=== PATIENT | female | born 2000 | race Caucasian/White ===

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

== ENCOUNTER 2020-04-24 04:54 | Emergency (ER) | payer OTHER, SELFPAY ==
--- NOTE | ~2020-04-24 | XR_ITS ---
EXAMINATION: XR chest 1V portable EXAM DATE: 04/24/2020 06:28 INDICATION: Cough. TECHNIQUE: Frontal and lateral projections of the chest obtained and reviewed. Comparison is made to prior examination from 04/01/2019. FINDINGS: Interval development of patchy bilateral infrahilar ill-defined acute airspace disease and smaller amount of left midlung zone opacity. Recommend considering possibility of COVID pneumonia. No pneumothorax or pleural effusion. Cardiomediastinal silhouette is normal. There are no osseous abnor malities identified. IMPRESSION: Development of bilateral right basilar predominant ill-defined acute airspace disease, po ssible COVID pneumonia. Reviewed, dictated and finalized at location A. DRIVER IMPRESSION: Development of bilateral right basilar predominant ill-defined acut e airspace disease, possible COVID pneumonia.
[2020-04-24 04:57] VITALS: BP 110/57; PULSE 91; RESP 18; TEMP 36.7; O2SAT 98
--- NOTE | 2020-04-24 05:45 | ED.GENADULT ---
HPI - General Adult General Chief complaint: Shortness of Breath/Dyspnea Stated complaint: covid +, breathing problems Time Seen by Provider: 04/24/20 05:44 History of Present Illness HPI narrative: Patient a 20-year-old female who presents the emergency department with chief complaint of shortness of breath. Patient reports he was just diagnosed with COVID-19 and reports that she has been having increased shortness of breath and feels tight in her chest at times. The patient states it worsened when she exerts herself states that she has had to sit down whenever she is active but the patient denies any signs of hypoxia. Related Data Allergies Allergy/AdvReac Type Severity Reaction Status Date / Time diazepam [From Valium] AdvReac Depression Verified 04/24/20 05:02 Review of Systems Review of Systems: Narrative: A 10 system review of systems was completed on the patient and is negative except for what is stated in the HPI. Nursing and ancillary documentation was reviewed. PMFSH Social History Social History Gender identity (if verbalized by the patient): Male Comments Past medical history is significant for recent diagnosis with COVID-19 and psoriasis Social history the patient denies smoking Exam Narrative: Exam Narrative: GENERAL: Well-appearing, well-nourished, and in no acute distress. HEAD: Normocephalic, atraumatic. EYES: PERRLA and EOMI. ENT: Nares clear, no rhinorrhea or epistaxis. Mucous membranes moist. NECK: Supple. CHEST: Clear to auscultation. No respiratory distress. HEART: Regular rate and rhythm. No murmur heard. Normal peripheral pulses. ABDOMEN: Soft, nontender, nondistended, normal active bowel sounds. EXTREMITIES: Normal range of motion. No edema. SKIN: Warm, dry, no rash. NEURO: No focal deficits. Alert and oriented x3. PSYCH: Normal mood and affect. Course Vital Signs Vital signs: Vital Signs Temperature 36.7 C 04/24/20 04:57 Pulse Rate 91 04/24/20 04:57 Respiratory Rate 18 04/24/20 04:57 Blood Pressure 110/57 L 04/24/20 04:57 Pulse Oximetry 98 04/24/20 04:57 Temperature 36.7 C 04/24/20 04:57 Pulse Rate 83 04/24/20 06:13 Respiratory Rate 18 04/24/20 06:13 Blood Pressure 113/74 04/24/20 06:13 Pulse Oximetry 98 04/24/20 06:13 Medical Decision Making Vital Signs Vital Signs: Vital Signs Temperature 36.7 C 04/24/20 04:57 Pulse Rate 91 04/24/20 04:57 Respiratory Rate 18 04/24/20 04:57 Blood Pressure 110/57 L 04/24/20 04:57 Pulse Oximetry 98 04/24/20 04:57 Temperature 36.7 C 04/24/20 04:57 Pulse Rate 83 04/24/20 06:13 Respiratory Rate 18 04/24/20 06:13 Blood Pressure 113/74 04/24/20 06:13 Pulse Oximetry 98 04/24/20 06:13 Discharge Plan Discharge Clinical Impression: COVID-19, Shortness of breath Patient Disposition: Home, Self-Care Condition: Stable Instructions: Antibiotic Form, Dyspnea (ED), COVID-19 (Coronavirus Disease 2019) (ED) Prescriptions: New albuterol sulfate 90 mcg/actuation HFA aerosol inhaler 2 inh inhalation Q4H PRN (Reason: shortness of breath or wheezing) Qty: 8.5 RF: 0 benzonatate 200 mg capsule 200 mg PO TID PRN (Reason: cough) Qty: 21 RF: 0 Follow-up/Referrals: Kannan Arechiga MD [Primary Care Provider] - Time of Disposition: 06:18
[2020-04-24 06:13] VITALS: BP 113/74; PULSE 83; RESP 18; O2SAT 98
== END 2020-04-24 06:34 | disposition home or self-care (01) ==
PROVIDERS: Emergency Provider Emergency Medicine; Family Provider Pediatrics; PCP Emergency Medicine
DX: U07.1 COVID-19 (principal); R06.02 Shortness of breath; R91.8 Other nonspecific abnormal finding of lung field
CPT/HCPCS: 71045; 99283

== ENCOUNTER 2020-06-04 18:18 | Emergency (ER) | payer OTHER, SELFPAY ==
--- NOTE | ~2020-06-04 | XR_ITS ---
XR ankle RT min 3V 06/04/2020 18:49 INDICATION: Right ankle pain PROCEDURE: 5 views right ankle COMPARISON: No prior studies for comparison. FINDINGS: Fracture, dislocation or subluxation is not identified. Ankle mortise intact. Talar dome is normal. The soft tissues appear within normal limits. No foreign bodies are identified. IMPRESSION: 1: NO ACUTE BONE OR JOINT ABNORMALITY IDENTIFIED. Reviewed, dictated and finalized at location A. NICAL BUSINESS ANALYST
[2020-06-04 18:20] VITALS: BP 136/88; PULSE 82; RESP 16; TEMP 36.2; O2SAT 98
--- NOTE | 2020-06-04 19:05 | ED.LOWEXIN ---
HPI - Extremity Injury (Lower) General Chief Complaint: Extremity Injury, Lower Stated Complaint: right ankle injury Time Seen by Provider: 06/04/20 18:32 Source: patient Mode of arrival: ambulatory Limitations: no limitations History of Present Illness HPI Narrative: This is a 20 year old female that presents to the ER for right ankle pain x 3 days. Reports pain is throbbing in nature. Reports no certain injury that she can think of. Also reports swelling to the area. Denies fever, erythema or warmth. Related Data Home Medications Medication Instructions Recorded Confirmed No Home Medications 06/04/20 06/04/20 Allergies Allergy/AdvReac Type Severity Reaction Status Date / Time diazepam [From Valium] AdvReac Depression Verified 06/04/20 18:19 Review of Systems Review of Systems: Narrative: CONSTITUTIONAL: Denies fever SKIN: Denies rash MUSCULOSKELETAL: Reports joint pain, and myalgia. NEUROLOGIC: Denies numbness All systems reviewed & are unremarkable except as noted in HPI and below PMFSH Past Medical History Medical History (Updated 06/04/20 @ 19:10 by Essence Avalos PA-C) Psoriasis Social History Social History (Updated 06/04/20 @ 19:08 by Essence Avalos PA-C) Substance use: never Gender identity (if verbalized by the patient): Female Exam Narrative: Exam Narrative: GENERAL: Well-appearing, well-nourished, and in no acute distress. HEAD: Normocephalic, atraumatic. EYES: EOMI. EXTREMITIES: Normal range of motion. No edema, erythema or warmth. Normal DP pulses. Normal sensation. Achilles tendon is intact SKIN: Warm, dry, no rash. NEURO: No focal deficits. Alert and oriented x3. PSYCH: Normal mood and affect Course Vital Signs Vital signs: Vital Signs Temperature 97.2 F L 06/04/20 18:20 Pulse Rate 82 06/04/20 18:20 Respiratory Rate 16 06/04/20 18:20 Blood Pressure 136/88 06/04/20 18:20 Pulse Oximetry 98 06/04/20 18:20 Temperature 97.2 F L 06/04/20 18:20 Pulse Rate 82 06/04/20 18:20 Respiratory Rate 16 06/04/20 18:20 Blood Pressure 136/88 06/04/20 18:20 Pulse Oximetry 98 06/04/20 18:20 MDM - Extremity Injury (Lower) MDM Narrative Medical decision making narrative: Patient presents the emergency department for right ankle pain x3 days. Is unsure of a certain injury. Right ankle x-rays without acute findings. Patient is neurovascularly intact. Patient given Pranay wrap for comfort. Was instructed to rest, ice and take [id number] pain medication as needed. She is to follow-up with primary care doctor. She was given warnings to return to the ER Imaging Data Radiologist's impression: ITS Impressions Ankle X-Ray 06/04/20 18:52 IMPRESSION: 1: NO ACUTE BONE OR JOINT ABNORMALITY IDENTIFIED. Critical Care Time Critical Care Time Critical Care Time: No Discharge Plan Discharge Clinical Impression: Ankle pain, right Qualifiers: Chronicity: acute Qualified Code(s): M25.571 - Pain in right ankle and joints of right foot Patient Disposition: Home, Self-Care Condition: Stable Instructions: Ankle Sprain (ED) Additional Instructions: Return to the emergency department if you experience fever, redness and swelling of your leg, numbness, or any other symptoms that are concerning to you Wear PRANAY wrap and use crutches. No weight on the affected leg until able to bear weight without pain. Ice and elevate extremity. Pain medication as needed and directed. Follow up with your doctor for further care. Prescriptions: No Action No Home Medications RF: 0 Follow-up/Referrals: Kannan Arechiga MD [Primary Care Provider] - 3 Days
== END 2020-06-04 19:38 | disposition home or self-care (01) ==
PROVIDERS: Emergency Provider Emergency Medicine; PCP Emergency Medicine
DX: M25.571 Pain in right ankle and joints of right foot (principal)
CPT/HCPCS: 73610; 99283

== ENCOUNTER 2023-12-30 13:17 | Emergency (ER) | payer OTHER, SELFPAY ==
--- NOTE | ~2023-12-30 | XR_ITS ---
EXAMINATION: XR chest 2V Exam Date/Time: 12/30/2023 16:14 CDT HISTORY: epigastric pain Comparison: 04/24/2020. RESULT: Lines, tubes, and devices: None. Lungs and pleura: Clear. Cardiomediastinal silhouette: Stable. Other: No acute osseous or upper abdominal finding. IMPRESSION: No acute cardiopulmonary process. Reviewed, dictated and finalized at location K.
[2023-12-30 13:30] VITALS: BP 120/81; PULSE 93; RESP 18; TEMP 36.2; O2SAT 99
[2023-12-30] MEDS: MAG HYDROX/AL HYDROX/SIMETH 30 ML UDC PO (15:41)
[2023-12-30] MEDS: LIDOCAINE HCL 2% VISC SOLN 15 ML UDC PO (15:42)
[2023-12-30] MEDS: PANTOPRAZOLE SOD SESQUIHYDRATE 20 MG TAB PO (15:42)
[2023-12-30] MEDS: FAMOTIDINE 20 MG TABLET PO (15:42)
[2023-12-30] MEDS: SUCRALFATE 1 GM TABLET PO (15:42)
--- NOTE | 2023-12-30 15:42 | ED.NAVMDI ---
HPI - Nausea/Vomiting/Diarrhea General Chief complaint: Skin/Abscess/Foreign Body Stated complaint: FB GI Time Seen by Provider: 12/30/23 15:11 History of Present Illness HPI Narrative: Patient takes doxycycline for acne, and several days ago felt it was stuck in her throat, and since then has been having increasing pain. Is able to eat and drink but it does hurt. Related Data Allergies Allergy/AdvReac Type Severity Reaction Status Date / Time diazepam [From Valium] AdvReac Depression Verified 06/04/20 18:19 Review of Systems Review of Systems: All systems reviewed & are unremarkable except as noted in HPI and below PMFSH Past Medical History Medical History (Updated 12/30/23 @ 15:30 by Margarita Em MD) Psoriasis Social History Social History (Updated 06/04/20 @ 19:08 by Essence Avalos PA-C) Substance use: never Gender identity (if verbalized by the patient): Female Exam Narrative: EXAMINATION OF ORGAN SYSTEMS/BODY AREAS: Constitutional: Vital signs per nursing GENERAL:[No acute distress, non-toxic appearing.] HEAD: Normal with no signs of head trauma. EYES: EOMI, conjunctiva normal ENT: Hearing grossly intact LUNGS: Nonlabored breathing. HEART: [Regular rate and rhythm] ABD: [Soft], [nontender to palpation] EXT: Normal range of motion SKIN: [No rashes or lesions.] NEURO: [Alert and oriented x 3. No gross focal sensory or strength deficits.] PSYCH: Normal affect Course Vital Signs Vital signs: Vital Signs Temperature 97.2 F L 12/30/23 13:30 Pulse Rate 93 12/30/23 13:30 Respiratory Rate 18 12/30/23 13:30 Blood Pressure 120/81 12/30/23 13:30 Pulse Oximetry 99 12/30/23 13:30 Temperature 98.1 F 12/30/23 17:53 Pulse Rate 86 12/30/23 17:53 Respiratory Rate 18 12/30/23 17:53 Blood Pressure 112/85 12/30/23 17:53 Pulse Oximetry 100 12/30/23 17:53 MDM - Nausea/Vomiting/Diarrhea MDM Narrative Medical decision making narrative: Patient takes doxycycline for acne, and several days ago felt it was stuck in her throat, and since then has been having increasing pain. Is able to eat and drink but it does hurt when she swallows. Well-appearing here, denies any pain or distress when she is not eating or swallowing anything, no chest wall tenderness or crepitus, I did discuss the case with wind turbine mechanical engineer on-call Dr. Moreno, he recommends GI cocktail, sucralfate, Protonix, for likely pill esophagitis, with follow-up in clinic. Medications are ordered but on re-evaluation patient still is driving home she pain, I did give her a obtained labs and imaging which are unremarkable other than slightly elevated white blood cell count, she is given additional pain medication on re-evaluation does feel slightly better, long discussion with patient and family at bedside regarding care for full soft diet is, diet instructions, follow-up instructions to Gastroenterology, and strict return precautions. Patient agreeable to plan. Prescriptions sent to pharmacy Lab Data 12/30/23 16:48 12/30/23 16:48 Labs: Lab Results 12/30/23 Range/Units 16:48 WBC 14.2 H (4.5-10.0) K/mm3 RBC 4.76 (4.2-5.4) M/mm3 Hgb 14.3 (12.0-15.0) g/dL Hct 42.2 (37.0-47.0) % MCV 88.7 (80-100) fl MCH 30.0 (26-34) pg MCHC 33.9 (32-36) g/dl RDW 12.8 (11.5-14.5) % Plt Count 278 (150-375) k/mm3 MPV 9.0 (7.4-10.4) fl Immature Gran % (Auto) 0.4 (0-0.5) % Neut % (Auto) 78.3 H (45.5-73.1) % Lymph % (Auto) 14.0 L (18.3-44.2) % [place] % (Auto) 6.1 (2.6-8.5) % Eos % (Auto) 0.8 (0-4.4) % Baso % (Auto) 0.4 (0.2-1.2) % Lymph # (Auto) 1.99 (0.9-3.2) K/mm3 [place] # (Auto) 0.9 H (0.1-0.6) K/mm3 Eos # (Auto) 0.1 (0-0.3) K/mm3 Baso # (Auto) 0.1 (0.0-0.1) K/mm3 Abs Immat Gran (auto) 0.06 H (0.00-0.031) K/mm3 Absolute Neuts (auto) 11.1 H (1.3-6.7) K/mm3 Absolute Nucleated RBC 0.000 (0.0-0.012) K/mm3 Nucleated RBC %
[2023-12-30 16:53] LABS: Basophils Absolute Auto 0.1 K/mm3 (0.0-0.1); Basophils Percent Auto 0.4 % (0.2-1.2); Eosinophils Absolute Auto 0.1 K/mm3 (0-0.3); Eosinophils Percent Auto 0.8 % (0-4.4); Hematocrit 42.2 % (37.0-47.0); Hemoglobin 14.3 g/dL (12.0-15.0); Immature Granulocyte Absolute 0.06 K/mm3 (0.00-0.031); Immature Granulocyte Percent A 0.4 % (0-0.5); Lymphocytes Absolute Auto 1.99 K/mm3 (0.9-3.2); Mean Corpuscular HGB Conc 33.9 g/dl (32-36); Mean Corpuscular Volume 88.7 fl (80-100); Monocytes Absolute Auto 0.9 K/mm3 (0.1-0.6); Monocytes Percent Auto 6.1 % (2.6-8.5); Neutrophils Absolute Auto 11.1 K/mm3 (1.3-6.7); Neutrophils Percent Auto 78.3 % (45.5-73.1); Platelet Count Result 278 k/mm3 (150-375); Red Blood Count 4.76 M/mm3 (4.2-5.4); Red Cell Distribution Width 12.8 % (11.5-14.5); White Blood Count 14.2 K/mm3 (4.5-10.0)
[2023-12-30] MEDS: MORPHINE SULFATE (*CRX) 2 MG/ML INJ IV PUSH (16:56)
[2023-12-30] MEDS: PANTOPRAZOLE SODIUM IV 40 MG VIAL IV PUSH (16:56)
[2023-12-30 17:03] LABS: Alanine Aminotransferase 17 U/L (6-35); Albumin Level 4.8 g/dL (3.5-5.1); Alkaline Phosphatase 56 U/L (38-126); Anion Gap 10 mmol/L (4-12); Aspartate Amino Transferase 23 U/L (14-36); Bilirubin,Total 0.9 mg/dL (0.2-1.3); Blood Urea Nitrogen 11 mg/dL (7-17); Calcium 9.1 mg/dL (8.4-10.2); Carbon Dioxide 24 mmol/L (22-30); Chloride 103 mmol/L (98-107); Estimated CRCL calculation 93 ml/min; Estimated Glomerular Filt Rate > 60; Glucose 84 mg/dL (65-110); Lipase 61 U/L (23-300); Potassium 3.9 mmol/L (3.4-5.0); Sodium 137 mmol/L (137-145)
[2023-12-30 17:53] VITALS: BP 112/85; PULSE 86; RESP 18; TEMP 36.7; O2SAT 100
== END 2023-12-30 17:56 | disposition home or self-care (01) ==
LOC: ANHED 15:32
PROVIDERS: Emergency Provider Emergency Medicine; PCP Emergency Medicine
DX: K20.80 Other esophagitis without bleeding (principal)
CPT/HCPCS: 36415; 71046; 80053; 83690; 85025; 96374; 96375; 99284; A9270; J2270; J2470

== ENCOUNTER 2024-01-02 01:48 | Observation (INO) | payer OTHER, SELFPAY ==
[2024-01-02] VITALS (9 sets, daily range): BP systolic 98–136; BP diastolic 54–94; PULSE 69–117; RESP 14–20; TEMP 36–36.8; O2SAT 97–101
--- NOTE | ~2024-01-02 | CT_ITS ---
Clinical Indication: Difficulty swallowing, foreign body sensation CT Scan of the Neck and Chest with Contrast: Technique: Contiguous sections were acquired throughout the and chest after intravenous administratio n of 100 cc of Omnipaque 350. Dose reduction technique was used on this scan by utilizing automated e xposure control and iterative reconstruction technique. The dose-length product (DLP) was 760.22 mGy- cm. Findings: No soft tissue mass or fluid collection seen in the neck. Parapharyngeal fat preserved bila terally. There are mildly enlarged bilateral level 2 cervical lymph nodes with mild prominence of the palatine tonsils bilaterally.. No abscess. Submandibular glands and parotid glands are unremarkable. Visualized orbits are unremarkable. Paranasal sinuses and mastoid air cells are clear. Vascular stru ctures enhance normally. Thyroid gland unremarkable. There is no evidence of any significant mediastinal, hilar or axillary lymphadenopathy. There is no f illing defect in the pulmonary arterial tree to suggest pulmonary embolus. There is no evidence of ao rtic dissection or aneurysm. There is no evidence of pleural or pericardial effusion. The lungs are clear. No pulmonary nodules or infiltrates are noted. Images through the upper abdomen reveal no abnormalities. Impression: Suggestion of bilateral tonsillitis with probable reactive level 2 cervical lymph nodes bilaterally. No other significant findings. No radiopaque foreign body. Reviewed, dictated and finalized at [facility]. Impression: Suggestion of bilateral tonsillitis with probable reactive level 2 cervical lym ph nodes bilaterally. No other significant findings. No radiopaque foreign body.
[2024-01-02] MEDS: SODIUM CHLORIDE 0.9% IV 1,000 ML 999 ML IV CONT ×2 (02:41→02:42)
[2024-01-02 02:45] LABS: BEDSIDEPREGUCG Negative (Negative)
[2024-01-02 02:48] LABS: Basophils Absolute Auto 0.1 K/mm3 (0.0-0.1); Basophils Percent Auto 0.4 % (0.2-1.2); Eosinophils Absolute Auto 0.1 K/mm3 (0-0.3); Eosinophils Percent Auto 0.6 % (0-4.4); Hematocrit 43.4 % (37.0-47.0); Hemoglobin 14.9 g/dL (12.0-15.0); Immature Granulocyte Absolute 0.05 K/mm3 (0.00-0.031); Immature Granulocyte Percent A 0.3 % (0-0.5); Lymphocytes Absolute Auto 1.92 K/mm3 (0.9-3.2); Lymphocytes Percent Auto 12.1 % (18.3-44.2); Mean Corpuscular HGB Conc 34.3 g/dl (32-36); Mean Corpuscular Hemoglobin 29.9 pg (26-34); Mean Platelet Volume 9.1 fl (7.4-10.4); Monocytes Absolute Auto 1.1 K/mm3 (0.1-0.6); Monocytes Percent Auto 6.7 % (2.6-8.5); Neutrophils Absolute Auto 12.7 K/mm3 (1.3-6.7); Neutrophils Percent Auto 79.9 % (45.5-73.1); Platelet Count Result 323 k/mm3 (150-375); Red Blood Count 4.99 M/mm3 (4.2-5.4); Red Cell Distribution Width 12.6 % (11.5-14.5); White Blood Count 15.9 K/mm3 (4.5-10.0)
[2024-01-02 03:03] LABS: Add Urine Microscopic? YES; Appearance Urine Cloudy (Clear); Bacteria Urine 4+ /hpf; Bilirubin Urine Negative (Negative); Blood Urine Negative (Negative); Color Urine Dark Yellow (Yellow); Glucose Urine UA Negative (Negative); Ketones Urine 4+ mg/dL (Negative); Leukocyte Esterase Ur 1+ LEU/UL (Negative); Need Manual Microscopic Reviewed; Nitrate Urine Negative (Negative); Non Pathogenic Casts 0-2; Protein Urine 2+ mg/dL (Negative); Specific Grav Ur 1.034 (1.001-1.035); Squamous Epithelial Cell Urine Many /hpf (Few); WBC Urine 51-100 /hpf (0-3); pH Urine 5.5 (5.0-9.0)
[2024-01-02 03:04] LABS: Alanine Aminotransferase 15 U/L (6-35); Albumin Level 4.9 g/dL (3.5-5.1); Alkaline Phosphatase 67 U/L (38-126); Anion Gap 15 mmol/L (4-12); Aspartate Amino Transferase 22 U/L (14-36); Bilirubin,Total 0.7 mg/dL (0.2-1.3); Blood Urea Nitrogen 13 mg/dL (7-17); Calcium 9.5 mg/dL (8.4-10.2); Carbon Dioxide 22 mmol/L (22-30); Chloride 102 mmol/L (98-107); Estimated CRCL calculation 84 ml/min; Estimated Glomerular Filt Rate > 60; Glucose 97 mg/dL (65-110); Sodium 139 mmol/L (137-145)
--- NOTE | 2024-01-02 04:58 | ED.GENADULT ---
HPI - General Adult General Chief complaint: Unspecified Stated complaint: unable to swallow due to pain Time Seen by Provider: 01/02/24 01:57 History of Present Illness HPI narrative: patient is a 23-year-old female who presents emergency department with chief complaint of difficulty swallowing patient reports she felt as though she had a pill stuck in her throat over the weekend was seen in the emergency department and reports to follow-up today with GI the patient states that since she was seen in the emergency department she has had difficulty swallowing and now is spitting out her oral secretions the patient denies shortness of breath Related Data Allergies Allergy/AdvReac Type Severity Reaction Status Date / Time diazepam [From Valium] AdvReac Depression Verified 01/02/24 01:48 Review of Systems Review of Systems: A 10 system review of systems was completed on the patient and is negative except for what is stated in the HPI. Nursing and ancillary documentation was reviewed. PMFSH Past Medical History Medical History Psoriasis Social History Social History Substance use: never Gender identity (if verbalized by the patient): Female Exam Narrative: GENERAL: Well-appearing, well-nourished, and in no acute distress.Patient is holding a emesis bag and spitting into it HEAD: Normocephalic, atraumatic. EYES: PERRLA and EOMI. ENT: Nares clear, no rhinorrhea or epistaxis. Mucous membranes moist. NECK: Supple. CHEST: Clear to auscultation. No respiratory distress. HEART: Regular rate and rhythm. No murmur heard. Normal peripheral pulses. ABDOMEN: Soft, nontender, nondistended, normal active bowel sounds. EXTREMITIES: Normal range of motion. No edema. SKIN: Warm, dry, no rash. NEURO: No focal deficits. Alert and oriented x3. PSYCH: Normal mood and affect. Course Vital Signs Vital signs: Vital Signs Temperature 36.8 C 01/02/24 01:58 Pulse Rate 117 H 01/02/24 01:58 Respiratory Rate 15 01/02/24 01:58 Blood Pressure 136/94 H 01/02/24 01:58 Pulse Oximetry 100 01/02/24 01:58 Oxygen Delivery Room Air 01/02/24 01:58 Temperature 36.8 C 01/02/24 01:58 Pulse Rate 99 01/02/24 05:40 Respiratory Rate 15 01/02/24 05:40 Blood Pressure 118/74 01/02/24 05:40 Pulse Oximetry 101 H 01/02/24 05:40 Oxygen Delivery Room Air 01/02/24 01:58 Medical Decision Making MDM Narrative Medical decision making narrative: differential diagnosis includes esophageal obstruction, gastritis, esophagitis, esophageal obstruction laboratory studies were obtained showed white count 15.9 electrolytes are within normal limits urinalysis showed evidence of UTI mono was negative strep is currently pending CT of the soft tissue neck with chest showed reactive lymphadenopathy and increased size of tonsils the patient's symptoms are more lower esophageal case was discussed with Dr. Moreno he was supposed to see the patient is now patient today a Dr. Moreno of recommended the patient be admitted to the hospitalist service and he will plan on doing an EGD today Vital Signs Vital Signs: Vital Signs Temperature 36.8 C 01/02/24 01:58 Pulse Rate 117 H 01/02/24 01:58 Respiratory Rate 15 01/02/24 01:58 Blood Pressure 136/94 H 01/02/24 01:58 Pulse Oximetry 100 01/02/24 01:58 Oxygen Delivery Room Air 01/02/24 01:58 Temperature 36.8 C 01/02/24 01:58 Pulse Rate 99 01/02/24 05:40 Respiratory Rate 15 01/02/24 05:40 Blood Pressure 118/74 01/02/24 05:40 Pulse Oximetry 101 H 01/02/24 05:40 Oxygen Delivery Room Air 01/02/24 01:58 Lab Data 01/02/24 02:35 01/02/24 02:35 Labs: Lab Results 01/02/24 01/02/24 01/02/24 Range/Units 02:35 02:43 06:25 WBC 15.9 H (4.5-10.0) K/mm3 RBC 4.99
[2024-01-02] MEDS: dexAMETHasone SOD PHOS INJ 10 MG/ML 1 ML VIAL IV PUSH (06:19)
[2024-01-02 06:34] LABS: Monoscreen Negative (Negative); Negative Monotest Control Negative (Negative); Positive Monotest Control Positive (Positive)
[2024-01-02] MEDS: PANTOPRAZOLE SODIUM IV 40 MG VIAL IV PUSH ×2 (06:49→20:26)
[2024-01-02 06:54] LABS: Strep Group A RT-PCR NOT DETECTED (Negative)
--- NOTE | 2024-01-02 07:10 | ADMGEN ---
This patient, Nayeli Duran, was admitted to [facility] Surg Room 311-01. Patient/family oriented to hospital policies and general routines including ID bracelet, bed and alarms, visiting hours, pain management, procedures, bathroom and other care routines, personal items, smoking policy, room service/diet, and visiting hours. Information on how to activate the Rapid Response Team has been discussed. Patient/Family are encouraged to report perceived risks to care and to ask questions if they do not understand what they are told or what they should do.
[2024-01-02] MEDS: SODIUM CHLORIDE 0.9% IV 1,000 ML 125 ML IV CONT (07:45)
[2024-01-02] MEDS: ONDANSETRON INJ 4 MG/2 ML VIAL IV PUSH ×2 (07:46→20:26)
--- NOTE | 2024-01-02 07:53 | PM.IMHP ---
H&P: HPI History of Present Illness Date/Time: 01/02/24 07:53 Chief Complaint: Difficulty swallowing Narrative: patient is a 23-year-old female who presents emergency department with chief complaint of difficulty swallowing patient reports she felt as though she had a pill stuck in her throat over the weekend was seen in the emergency department and reports to follow-up today with GI. The patient states that since she was seen in the emergency department she has had difficulty swallowing and now is spitting out her oral secretions and not able to swallow anything. The patient denies shortness of breath. Patient denies any sore throat. Patient denies any fever chills. She has been treated with doxycycline for her acne. And it has been about month and a half. Review of Systems Review of Systems: - CONSTITUTIONAL: Denies weight loss, fever and chills. - HEENT: Denies changes in vision and hearing - RESPIRATORY: Denies SOB and cough. - CV: Denies palpitations and CP. - GI: Denies abdominal pain, nausea, vomiting and diarrhea. Reports epigastric pain - : Denies dysuria and urinary frequency. - MSK: Denies myalgia and joint pain. - SKIN: Denies rash and pruritus. - NEUROLOGICAL: Denies headache and syncope. - PSYCHIATRIC: Denies recent changes in mood. Denies anxiety and depression. [facility] Past Medical History Medical History (Updated 01/02/24 @ 14:45 by Bull Pollack MD) Acne Leukocytosis Nausea and vomiting in adult Non-cardiac chest pain Odynophagia Psoriasis Family History Family History (Updated 01/02/24 @ 07:17 by Hortensia Daugherty RN) Grandparent Cerebrovascular accident Social History Social History Smoking status: Never smoker Substance use: never Do You Feel Safe in your Home?: Yes Lack of Transportation: No Lack of Food: Never True Current Housing: I Have Housing Concerned About Future Housing: No Difficulty Paying Gas/Electric Bills: No Difficulty Paying for Meds: No Currently Unemployed: No Education: High School Diploma/GED Difficulty w/ Childcare or Family Care: No Gender identity (if verbalized by the patient): Female Spiritual care concerns: No Meds Home Medications and Allergies Home Medications Medication Instructions Recorded Confirmed Type aluminum-mag hydroxide-simethicone 10 ml PO QID PRN dyspepsia #300 mL 12/30/23 01/02/24 Rx 200 mg-200 mg-20 mg/5 mL oral susp (Maalox Advanced) lidocaine HCl 2 % mucosal solution 1 applic mucous membrane BID PRN 12/30/23 01/02/24 Rx (Lidocaine Viscous) pain #100 mL pantoprazole 20 mg tablet,delayed 20 mg PO QAM 4 weeks #28 tabs 12/30/23 01/02/24 Rx release (Protonix) sucralfate 100 mg/mL oral 1 g (10 mL) PO TID 2 weeks #420 mL 12/30/23 01/02/24 Rx suspension (Carafate) Allergies Allergy/AdvReac Type Severity Reaction Status Date / Time diazepam [From Valium] AdvReac Depression Verified 01/02/24 09:27 Vital Signs Vital Signs - 24 hr 01/02/24 01:58 01/02/24 05:40 Temperature 98.3 F Pulse Rate 117 H 99 Respiratory Rate 15 15 Blood Pressure 136/94 H 118/74 Pulse Oximetry 100 101 H Oxygen Delivery Room Air Exam Narrative: GENERAL: Well-appearing, well-nourished, and in no acute distress. HEAD: Normocephalic, atraumatic. EYES: PERRLA and EOMI. ENT: Nares clear, no rhinorrhea or epistaxis. Mucous membranes moist. NECK: Supple. CHEST: Clear to auscultation. No respiratory distress. HEART: Regular rate and rhythm. No murmur heard. Normal peripheral pulses. ABDOMEN: Soft, tender epigastric area, nondistended, normal active bowel sounds. EXTREMITIES: Normal range of motion. No edema. SKIN: Warm, dry, no rash. NEURO: No focal deficits. Alert and oriented x3. PSYCH: Normal mood and affect. H&P: Results Labs Labs: Short CBC 01/02/24 Range/Units 02:35 WBC 15
[2024-01-02] MEDS: LACTATED RINGERS 1,000 ML 150 ML IV CONT (09:33)
--- NOTE | 2024-01-02 09:54 | WPDANESEPPF ---
Anes - Initial Pre Proc Eval Procedure: Operation Date: 01/02/24 14:30 Proposed Procedures p Esophagogastroduodenoscopy - Bull Pollack MD Date/Time: 01/02/24 09:54 Surgeon: Tacho Gupta MD Pre Op Diagnosis: Dysphagia/UTI Patient Data Age: 23 Gender: F Height: 1.63 m Weight: 73 kg Last Vital Signs Temp 96.8 F L 01/02/24 09:29 Pulse 96 01/02/24 09:29 Resp 18 01/02/24 09:29 BP 122/74 01/02/24 09:29 Pulse Ox 100 01/02/24 09:29 O2 Del Method Room Air 01/02/24 09:29 Allergies Allergy/AdvReac Type Severity Reaction Status Date / Time diazepam [From Valium] AdvReac Depression Verified 01/02/24 09:27 Home Medications Medication Instructions Recorded Confirmed Type aluminum-mag hydroxide-simethicone 10 ml PO QID PRN dyspepsia #300 mL 12/30/23 01/02/24 Rx 200 mg-200 mg-20 mg/5 mL oral susp (Maalox Advanced) lidocaine HCl 2 % mucosal solution 1 applic mucous membrane BID PRN 12/30/23 01/02/24 Rx (Lidocaine Viscous) pain #100 mL pantoprazole 20 mg tablet,delayed 20 mg PO QAM 4 weeks #28 tabs 12/30/23 01/02/24 Rx release (Protonix) sucralfate 100 mg/mL oral 1 g (10 mL) PO TID 2 weeks #420 mL 12/30/23 01/02/24 Rx suspension (Carafate) Laboratory Tests 01/02/24 01/02/24 01/02/24 02:35 02:43 06:25 WBC 15.9 H K/mm3 (4.5-10.0) RBC 4.99 M/mm3 (4.2-5.4) Hgb 14.9 g/dL (12.0-15.0) Hct 43.4 % (37.0-47.0) MCV 87.0 fl (80-100) MCH 29.9 pg (26-34) MCHC 34.3 g/dl (32-36) RDW 12.6 % (11.5-14.5) Plt Count 323 k/mm3 (150-375) MPV 9.1 fl (7.4-10.4) Immature Gran % (Auto) 0.3 % (0-0.5) Neut % (Auto) 79.9 H % (45.5-73.1) Lymph % (Auto) 12.1 L % (18.3-44.2) [place] % (Auto) 6.7 % (2.6-8.5) Eos % (Auto) 0.6 % (0-4.4) Baso % (Auto) 0.4 % (0.2-1.2) Lymph # (Auto) 1.92 K/mm3 (0.9-3.2) [place] # (Auto) 1.1 H K/mm3 (0.1-0.6) Eos # (Auto) 0.1 K/mm3 (0-0.3) Baso # (Auto) 0.1 K/mm3 (0.0-0.1) Abs Immat Gran (auto) 0.05 H K/mm3 (0.00-0.031) Absolute Neuts (auto) 12.7 H K/mm3 (1.3-6.7) Absolute Nucleated RBC 0.000 K/mm3 (0.0-0.012) Nucleated RBC % 0.0 % (0.0-0.2) Sodium 139 mmol/L (137-145) Potassium 4.0 mmol/L (3.4-5.0) Chloride 102 mmol/L (98-107) Carbon Dioxide 22 mmol/L (22-30) Anion Gap 15 H mmol/L (4-12) BUN 13 mg/dL (7-17) Creatinine 0.90 mg/dL (0.7-1.0) Estim Creat Clear Calc 84 ml/min Estimated GFR > 60 (59 - ) Glucose 97 mg/dL (65-110) Calcium 9.5 mg/dL (8.4-10.2) Total Bilirubin 0.7 mg/dL (0.2-1.3) AST 22 U/L (14-36) ALT 15 U/L (6-35) Alkaline Phosphatase 67 U/L (38-126) Total Protein 9.0 H g/dL (6.3-8.2) Albumin 4.9 g/dL (3.5-5.1) Urine Color Dark yellow (Yellow) Urine Appearance Cloudy H (Clear) Urine pH 5.5 (5.0-9.0) Ur Specific [place] 1.034 (1.001-1.035) Urine Protein 2+ H mg/dL (Negative) Urine Glucose (UA) Negative mg/dL (Negative) Urine Ketones 4+ H mg/dL (Negative) Ur Blood (Man) Negative (Negative) Urine Nitrate Negative (Negative) Urine Bilirubin Negative (Negative) Urine Urobilinogen 1.0 mg/dL (<2.0) Add Ur Microanalysis Reviewed Leukocyte Esterase Rfl 1+ H ADOLFO/UL (Negative) Urine RBC 11-20 H /hpf (0-2) Urine WBC 51-100 H /hpf (0-3) Ur Squamous Epith Cells Many H /hpf (Few) Urine Bacteria 4+ H /hpf Urine Casts 0-2 POC Urine HCG, Qual Negative (Neg
--- NOTE | 2024-01-02 10:11 | WPDGICN ---
Assessment and Plan Assessment and plan (1) Odynophagia: Code(s): R13.10 - Dysphagia, unspecified Status: Acute Assessment and Plan: probably pill esophagitis based on history egd today iv protonix, gi cocktail more recommendations after egd (2) Non-cardiac chest pain: Code(s): R07.89 - Other chest pain Status: Acute Assessment and Plan: probably related to esophagitis monitor (3) Nausea and vomiting in adult: Code(s): R11.2 - Nausea with vomiting, unspecified Status: Acute (4) Leukocytosis: Code(s): D72.829 - Elevated white blood cell count, unspecified Status: Acute (5) Pill esophagitis: Code(s): K20.80 - Other esophagitis without bleeding; T50.905A - Adverse effect of unspecified drugs, medicaments and biological substances, initial encounter Status: Inactive (6) Acne: Code(s): L70.9 - Acne, unspecified Status: Acute GI Consult Note Consult date/time: 01/02/24 10:11 Reason for consult: n/v, odynophagia HPI: Nayeli Duran is a 23 year old female with history of acne who was taking doxycycline as outpatient and few days ago after taking pill had sensation of chest discomfort, pain worsened and came to ER, given instructions to take ppi but 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 CT scan neck Suggestion of bilateral tonsillitis with probable reactive level 2 cervical lymph nodes bilaterally. Also mild leukocytosis. She is npo and ready to have EGD. Review of Systems Constitutional: Constitutional: Denies chills Eyes: Eyes: Denies blurry vision ENT: Reports Normal hearing present, Denies headache(s) and Denies neck pain Cardiovascular: Cardiovascular: Reports chest pain and Denies dyspnea Respiratory: Respiratory: Denies dyspnea Gastrointestinal: Gastrointestinal: Reports nausea Genitourinary: Genitourinary: Denies dysuria Musculoskeletal: Musculoskeletal: Denies neck pain Integumentary/Breasts: Skin/Breast: Denies dry skin Neurologic: Reports Normal hearing present, Denies headache(s) and Denies weakness Psychiatric: Psychiatric: Denies anxiety Endocrine: Endocrine: Denies change in body appearance Hematologic/Lymphatic: Hematologic/Lymphatic: Denies easy bleeding Allergic/Immunologic: Allergic/Immunologic: Denies urticaria PMFSH Past Medical History Medical History (Updated 01/02/24 @ 14:45 by Bull Pollack MD) Acne Leukocytosis Nausea and vomiting in adult Non-cardiac chest pain Odynophagia Psoriasis Family History Family History (Updated 01/02/24 @ 07:17 by Hortensia Daugherty RN) Grandparent Cerebrovascular accident Social History Social History Smoking status: Never smoker Substance use: never Do You Feel Safe in your Home?: Yes Lack of Transportation: No Lack of Food: Never True Current Housing: I Have Housing Concerned About Future Housing: No Difficulty Paying Gas/Electric Bills: No Difficulty Paying for Meds: No Currently Unemployed: No Education: High School Diploma/GED Difficulty w/ Childcare or Family Care: No Gender identity (if verbalized by the patient): Female Spiritual care concerns: No Meds Home Medications and Allergies Home Medications Medication Instructions Recorded Confirmed Type aluminum-mag hydroxide-simethicone 10 ml PO QID PRN dyspepsia #300 mL 12/30/23 01/02/24 Rx 200 mg-200 mg-20 mg/5 mL oral susp (Maalox Advanced) lidocaine HCl 2 % mucosal solution 1 applic mucous membrane BID PRN 12/30/23 01/02/24 Rx (Lidocaine Viscous) pain #100 mL pantoprazole 20 mg tablet,delayed 20 mg PO QAM 4 weeks #28 tabs 12/30/23 01/02/24 Rx release (Protonix) sucralfate 100 mg/mL oral 1 g (10 mL) PO TID 2 weeks #420 mL 12/30/2301/01
[2024-01-02] MEDS: SUCRALFATE SUSP 100 MG/ML 10 ML UDC 1000 MG PO ×2 (12:38→20:26)
[2024-01-02] MEDS: ACETAMINOPHEN 325 MG TABLET 650 MG PO (18:42)
[2024-01-03] MEDS: SODIUM CHLORIDE 0.9% IV 1,000 ML 125 ML IV CONT (02:46)
[2024-01-03 04:25] VITALS: BP 107/71; PULSE 78; RESP 18; TEMP 36.4; O2SAT 99
[2024-01-03] MEDS: ONDANSETRON INJ 4 MG/2 ML VIAL IV PUSH (05:24)
[2024-01-03] MEDS: SUCRALFATE SUSP 100 MG/ML 10 ML UDC 1000 MG PO ×4 (05:30→20:30)
[2024-01-03 07:04] LABS: Basophils Percent Auto 0.4 % (0.2-1.2); Eosinophils Absolute Auto 0.1 K/mm3 (0-0.3); Eosinophils Percent Auto 0.7 % (0-4.4); Hematocrit 35.9 % (37.0-47.0); Hemoglobin 11.7 g/dL (12.0-15.0); Immature Granulocyte Absolute 0.03 K/mm3 (0.00-0.031); Immature Granulocyte Percent A 0.3 % (0-0.5); Lymphocytes Percent Auto 23.6 % (18.3-44.2); Mean Corpuscular HGB Conc 32.6 g/dl (32-36); Mean Corpuscular Hemoglobin 28.7 pg (26-34); Mean Corpuscular Volume 88.2 fl (80-100); Mean Platelet Volume 9.5 fl (7.4-10.4); Monocytes Absolute Auto 0.9 K/mm3 (0.1-0.6); Monocytes Percent Auto 8.1 % (2.6-8.5); Neutrophils Absolute Auto 7.1 K/mm3 (1.3-6.7); Neutrophils Percent Auto 66.9 % (45.5-73.1); Platelet Count Result 256 k/mm3 (150-375); Red Blood Count 4.07 M/mm3 (4.2-5.4); Red Cell Distribution Width 12.7 % (11.5-14.5); White Blood Count 10.6 K/mm3 (4.5-10.0)
[2024-01-03 07:18] VITALS: O2SAT 99
[2024-01-03 07:29] LABS: Alanine Aminotransferase 11 U/L (6-35); Albumin Level 3.9 g/dL (3.5-5.1); Alkaline Phosphatase 44 U/L (38-126); Anion Gap 7 mmol/L (4-12); Aspartate Amino Transferase 18 U/L (14-36); Bilirubin,Total 0.3 mg/dL (0.2-1.3); Blood Urea Nitrogen 13 mg/dL (7-17); Calcium 8.6 mg/dL (8.4-10.2); Carbon Dioxide 24 mmol/L (22-30); Chloride 108 mmol/L (98-107); Estimated CRCL calculation 105 ml/min; Estimated Glomerular Filt Rate > 60; Glucose 94 mg/dL (65-110); Magnesium 1.9 mg/dL (1.6-2.3); Sodium 139 mmol/L (137-145)
[2024-01-03] MEDS: PANTOPRAZOLE SODIUM IV 40 MG VIAL IV PUSH ×2 (08:49→20:30)
[2024-01-03 14:00] VITALS: BP 104/67; PULSE 72; RESP 18; TEMP 36.7; O2SAT 100
--- NOTE | 2024-01-03 15:59 | WPDGIPROGNO ---
Progress Note: A&P Assessment and Plan (1) Odynophagia: Code(s): R13.10 - Dysphagia, unspecified Status: Acute Assessment and Plan: from pill esophagitis advance diet as tolerated, she will have pain probably for few more days protonix, gi cocktail as needed she can have ensure or boost if unable to eat much (2) Pill esophagitis: Code(s): K20.80 - Other esophagitis without bleeding; T50.905A - Adverse effect of unspecified drugs, medicaments and biological substances, initial encounter Status: Inactive (3) Non-cardiac chest pain: Code(s): R07.89 - Other chest pain Status: Acute (4) Nausea and vomiting in adult: Code(s): R11.2 - Nausea with vomiting, unspecified Status: Acute Subjective Date/time seen: 01/03/24 15:59 Interval history: able to drink but still unable to hold food, still with odynophagia just slightly better Review of Systems Review of Systems: All systems reviewed & are unremarkable except as noted in HPI and below Exam Const: General: comfortable and no acute distress HENMT: Face/Nose/Sinus: Normal nares present Eyes: Sclera: sclerae normal Neck: Neck: supple Resp: Auscultation: clear to auscultation bilaterally Cardio: Rate: regular rate Rhythm: regular rhythm GI: Inspection: non-distended GI Palp: Yes Soft to palpation and No Tenderness to palpation present (GI) Auscultation: normal bowel sounds Skin: General skin exam: normal color Neuro: Speech: normal speech Motor exam (neuro): 5/5 motor strength present throughout Extrem: General: normal to inspection Psych: Mental Status: mental status grossly normal Objective Data Vital Signs Vital Signs: Vital Signs - 24 hr 01/02/24 21:30 01/03/24 04:25 01/03/24 07:18 Temperature 97.8 F 97.5 F L Pulse Rate 83 78 Respiratory Rate 18 18 Blood Pressure 123/71 107/71 Pulse Oximetry 99 99 99 Oxygen Delivery Room Air Fraction of Inspired Oxygen 21 01/03/24 08:00 01/03/24 14:00 Temperature 98.1 F Pulse Rate 72 Respiratory Rate 18 Blood Pressure 104/67 Pulse Oximetry 100 Oxygen Delivery Room Air Fraction of Inspired Oxygen Intake/Output Intake/Output: Intake & Output 10/06/24 01/01/24 01/02/24 01/03/24 23:59 23:59 23:59 23:59 Intake Total 3310.0 150 Balance 3310.0 150 Meds/Results Medications: Active Medications Generic Name Dose Route Start Last Admin Trade Name Freq PRN Reason Stop Dose Admin Acetaminophen 650 mg 01/02/24 18:35 01/02/24 18:42 Acetaminophen 325 Mg Tablet PO 650 mg Q6H PRN Administration Mild Pain (1-3) or Fever Al Hydrox/Mg Hydrox/Simethicone 30 ml 01/02/24 10:48 Mag Hydrox/Al Hydrox/Simeth 30 Ml Udc PO Q6H PRN Indigestion Cefdinir 300 mg 01/04/24 09:00 Cefdinir 300 Mg Capsule PO Q12HR ANDRES Ondansetron HCl 4 mg 01/02/24 06:40 01/03/24 05:24 Ondansetron Inj 4 Mg/2 Ml Vial IV PUSH 4 mg Q4H PRN Administration Nausea Pantoprazole Sodium 40 mg 01/02/24 21:00 01/03/24 08:49 Pantoprazole Sodium Iv 40 Mg Vial IV PUSH 40 mg Q12HR ANDRES Administration Sucralfate 1,000 mg 01/02/24 11:30 01/03/24 05:30 Sucralfate Susp 100 Mg/Ml 10 Ml Udc PO 1,000 mg ACHS ANDRES Administration Radiology Results: ITS Impressions Neck/Chest CT 01/02/24 06:03 Impression: Suggestion of bilateral tonsillitis with probable reactive level 2 cervical lymph nodes bilaterally. No other significant findings. No radiopaque foreign body. Labs Labs: Laboratory Results - last 24 hr 01/03/24 06:36 WBC 10.6 H RBC 4.07 L Hgb 11.7 L D Hct 35.9 L MCV 88.2 MCH 28.7 MCHC 32.6 RDW 12.7 Plt Count 256 MPV 9.5 Immature Gran % (Auto) 0.3 Neut % (Auto) 66.9 Lymph % (Auto) 23.6 [place] % (Auto) 8.1 Eos % (Auto) 0.7 Baso % (Auto) 0.4 Lymph # (Auto) 2.50 [place] # (Auto) 0.9 H Eos # (Auto) 0.1 Baso # (Auto) 0.0 Abs Immat Gran
--- NOTE | 2024-01-03 16:23 | PM.IMPN ---
Progress Note: A&P Assessment and Plan (1) Esophagitis due to doxycycline: Code(s): K20.80 - Other esophagitis without bleeding; T36.4X5A - Adverse effect of tetracyclines, initial encounter Status: Acute (2) Dysphagia: Code(s): R13.10 - Dysphagia, unspecified Status: Acute (3) UTI (urinary tract infection): Code(s): N39.0 - Urinary tract infection, site not specified Status: Acute (4) Acne: Code(s): L70.9 - Acne, unspecified Status: Acute (5) Odynophagia: Code(s): R13.10 - Dysphagia, unspecified Status: Acute Plan HPI - patient is a 23-year-old female who presents emergency department with chief complaint of difficulty swallowing patient reports she felt as though she had a pill stuck in her throat over the weekend was seen in the emergency department and reports to follow-up today with GI the patient states that since she was seen in the emergency department she has had difficulty swallowing and now is spitting out her oral secretions the patient denies shortness of breath. ED - In the ED vitals were stable except for mild tachycardia. Laboratory evaluation showed WBC count 15.9 hemoglobin 14.9 Chem panel was unremarkable urinalysis showed evidence of UTI. [place] test was negative group a strep swab negative. CT of the soft tissue neck with chest showed bilateral tonsillitis with probable reactive level 2 cervical lymph nodes bilaterally. Hospital course - UPT was negative. GI has been consulted and she underwent EGD showing severe localized pill esophagitis in the distal esophagus. The esophagitis had severe erythematous, edematous, ulcerative and exudative changes. Biopsies were taken. Remainder of the exam was normal. Pathology was compatible with pill esophagitis. Likely related to pill induced esophagitis due to doxycycline. Doxycycline stopped. Protonix and sucralfate ordered. Still with odynophagia. Tonsillitis - strep swab negative, Monospot negative. This probably related to reflux esophagitis. UA concerning for possible UTI; on ceftriaxone. urine culture pending. await culture. Changed to Cefdinir for UTI and tonsillitis. Home when able to tolerate oral intake. Advance diet as toelrated. Add Ensure DVT prophylaxis SCDs Code status full code Subjective Date/time seen: 01/03/24 16:23 Interval history: 23yo female with psoriasis and acne here for dysphagia related to doxycycline that she takes for her acne. Assuming care. Chart reviewed. Still having trouble tolerating solid foods. Still with odynophagia even with liquids but is able to tolerate them better. Unable to eat solid foods. Exam Narrative: AF 98.1 104/67 72 18 100% ra Gen - NARD HEENT - OP clear. Neck - supple. no tender adenopathy Chest - CTA bilaterally, nml RR CV - RRR S1/S2 Abd - Soft, mild epigastric tenderness Ext - No pedal edema Psych - Nml mood and affect Skin - Warm and dry Objective Data Vital Signs Vital Signs: Vital Signs - 24 hr 01/02/24 21:30 01/03/24 04:25 01/03/24 07:18 Temperature 97.8 F 97.5 F L Pulse Rate 83 78 Respiratory Rate 18 18 Blood Pressure 123/71 107/71 Pulse Oximetry 99 99 99 Oxygen Delivery Room Air Fraction of Inspired Oxygen 21 01/03/24 08:00 01/03/24 14:00 Temperature 98.1 F Pulse Rate 72 Respiratory Rate 18 Blood Pressure 104/67 Pulse Oximetry 100 Oxygen Delivery Room Air Fraction of Inspired Oxygen Intake/Output Intake/Output: Intake & Output 12/31/23 01/01/24 01/02/24 01/03/24 23:59 23:59 23:59 23:59 Intake Total 3310.0 150 Balance 3310.0 150 Meds/Results Medications: Active Medications Generic Name Dose Route Start Last Admin Trade Name Freq PRN Reason Stop Dose Admin Acetaminophen 650 mg 01/02/24 18:35 01/02/24 18:42 Acetaminophen 325 Mg Tablet PO 650 mg Q6H PRN Administration Mild Pain (1-3) or Fever Al Hydrox/Mg Hydrox/Simethicone 30 ml
[2024-01-03 20:00] VITALS: PULSE 60; RESP 18; O2SAT 100
[2024-01-03 21:23] VITALS: BP 106/56; PULSE 60; RESP 18; TEMP 36.4; O2SAT 100
[2024-01-04] MEDS: SUCRALFATE SUSP 100 MG/ML 10 ML UDC 1000 MG PO ×2 (05:20→12:15)
[2024-01-04 05:41] VITALS: BP 101/56; PULSE 79; RESP 18; TEMP 36.2; O2SAT 100
[2024-01-04 08:00] VITALS: O2SAT 100
[2024-01-04] MEDS: CEFDINIR 300 MG CAPSULE PO (08:06)
[2024-01-04] MEDS: PANTOPRAZOLE SODIUM IV 40 MG VIAL IV PUSH (08:06)
--- NOTE | 2024-01-04 12:33 | WPDGIPROGNO ---
Progress Note: A&P Assessment and Plan (1) Odynophagia: Code(s): R13.10 - Dysphagia, unspecified Status: Acute Assessment and Plan: from pill esophagitis eating more and pain has improved she can go home with protonix, gi cocktail as needed (2) Pill esophagitis: Code(s): K20.80 - Other esophagitis without bleeding; T50.902U - Adverse effect of unspecified drugs, medicaments and biological substances, initial encounter Status: Inactive Assessment and Plan: improving bx reviewed (3) Non-cardiac chest pain: Code(s): R07.89 - Other chest pain Status: Acute (4) Nausea and vomiting in adult: Code(s): R11.2 - Nausea with vomiting, unspecified Status: Acute Subjective Date/time seen: 01/04/24 12:33 Interval history: odynophagia is better and able to eat more today Review of Systems Review of Systems: All systems reviewed & are unremarkable except as noted in HPI and below Exam Const: General: comfortable and no acute distress HENMT: Face/Nose/Sinus: Normal nares present Eyes: Sclera: sclerae normal Neck: Neck: supple Resp: Auscultation: clear to auscultation bilaterally Cardio: Rate: regular rate Rhythm: regular rhythm GI: Inspection: non-distended GI Palp: Yes Soft to palpation and No Tenderness to palpation present (GI) Auscultation: normal bowel sounds Skin: General skin exam: normal color Neuro: Speech: normal speech Motor exam (neuro): 5/5 motor strength present throughout Extrem: General: normal to inspection Psych: Mental Status: mental status grossly normal Objective Data Vital Signs Vital Signs: Vital Signs - 24 hr 01/03/24 14:00 01/03/24 21:23 01/03/24 20:00 Temperature 98.1 F 97.6 F Pulse Rate 72 60 60 Respiratory Rate 18 18 18 Blood Pressure 104/67 106/56 L Pulse Oximetry 100 100 100 Oxygen Delivery Room Air Fraction of Inspired Oxygen 21 01/04/24 05:41 01/04/24 08:00 Temperature 97.2 F L Pulse Rate 79 Respiratory Rate 18 Blood Pressure 101/56 L Pulse Oximetry 100 100 Oxygen Delivery Room Air Fraction of Inspired Oxygen Intake/Output Intake/Output: Intake & Output 01/01/24 01/02/24 01/03/24 01/04/24 23:59 23:59 23:59 23:59 Intake Total 3310.0 150 690 Balance 3310.0 150 690 Meds/Results Medications: Active Medications Generic Name Dose Route Start Last Admin Trade Name Freq PRN Reason Stop Dose Admin Acetaminophen 650 mg 01/02/24 18:35 01/02/24 18:42 Acetaminophen 325 Mg Tablet PO 650 mg Q6H PRN Administration Mild Pain (1-3) or Fever Al Hydrox/Mg Hydrox/Simethicone 30 ml 01/02/24 10:48 Mag Hydrox/Al Hydrox/Simeth 30 Ml Udc PO Q6H PRN Indigestion Cefdinir 300 mg 01/04/24 09:00 01/04/24 08:06 Cefdinir 300 Mg Capsule PO 300 mg Q12HR ANDRES Administration Ondansetron HCl 4 mg 01/02/24 06:40 01/03/24 05:24 Ondansetron Inj 4 Mg/2 Ml Vial IV PUSH 4 mg Q4H PRN Administration Nausea Pantoprazole Sodium 40 mg 01/02/24 21:00 01/04/24 08:06 Pantoprazole Sodium Iv 40 Mg Vial IV PUSH 40 mg Q12HR ANDRES Administration Sucralfate 1,000 mg 01/02/24 11:30 01/04/24 12:15 Sucralfate Susp 100 Mg/Ml 10 Ml Udc PO 1,000 mg ACHS ANDRES Administration Radiology Results: ITS Impressions Neck/Chest CT 01/02/24 06:03 Impression: Suggestion of bilateral tonsillitis with probable reactive level 2 cervical lymph nodes bilaterally. No other significant findings. No radiopaque foreign body.
[2024-01-04 14:00] VITALS: BP 116/65; PULSE 76; RESP 20; TEMP 36.3; O2SAT 100
--- NOTE | 2024-01-04 16:15 | PM.DS ---
DS: Admitting Diagnosis Discharge Date 01/04/24 Admitting Diagnosis Dysphagia DS: Discharge Diagnosis Discharge Diagnosis (1) Esophagitis due to doxycycline: Code(s): K20.80 - Other esophagitis without bleeding; T36.4X5A - Adverse effect of tetracyclines, initial encounter Status: Acute (2) Dysphagia: Code(s): R13.10 - Dysphagia, unspecified Status: Acute (3) Acne: Code(s): L70.9 - Acne, unspecified Status: Acute (4) Odynophagia: Code(s): R13.10 - Dysphagia, unspecified Status: Acute DS: Summary Hospital Course Reason for hospitalization: 23yo female with psoriasis and acne here for dysphagia related to doxycycline that she takes for her acne. Please see H&P for details. Hospital Course: In the ED vitals were stable except for mild tachycardia. Laboratory evaluation showed WBC count 15.9K, hemoglobin 14.9. Chem panel was unremarkable. UA showed evidence of possible UTI. [place] test was negative and Group A strep swab negative. CT of the soft tissue neck with chest showed bilateral tonsillitis with probable reactive level 2 cervical lymph nodes bilaterally. UPT was negative. GI was consulted and she underwent EGD showing severe localized pill esophagitis in the distal esophagus. The esophagitis had severe erythematous, edematous, ulcerative and exudative changes. Biopsies were taken. Remainder of the exam was normal. Pathology was compatible with pill esophagitis. Likely related to pill induced esophagitis due to doxycycline. Doxycycline stopped. Protonix and sucralfate ordered. Still had odynophagia but this improved. UA concerning for possible UTI; on ceftriaxone. urine culture was negative. UTI ruled out. Changed to Cefdinir for tonsillitis. She overall did well and was able to be discharged home on 01/04/24. Status at Discharge Cognitive/behavioral status at discharge: stable Time Spent with Patient Time attestation: Total time spent providing and/or coordinating discharge services: 32 minutes Time spent: Greater than 30 minutes Exam Narrative: AF 97.2 101/56 79 18 100% ra Gen - NARD Chest - CTA bilaterally, nml RR CV - RRR S1/S2 Abd - Soft, NT/ND Ext - No pedal edema Psych - Nml mood and affect Skin - Warm and dry DS: Data Data Completed and Pending Completed studies during hospitalization: Pending at discharge 01/02/24 10:19 Surgical [PTH] Routine Discharge Plan Discharge Attending physician on discharge: Nahid Aleman Consulting providers: Bull Pollack Discharging Clinician: Nahid Aleman Anticipated Discharge Date/Time: 01/04/24 16:21 Patient Disposition: Home, Self-Care Activity: as tolerated Diet: as tolerated and regular Discharge Instructions: Please complete your antibiotic course even if you are starting to feel well. Contact your doctor or call 911 and come to the Emergency Room if you have trouble swallowing or other worrisome symptoms. Avoid NSAIDs (ibuprofen, naproxen, Aleve). Tylenol is safe to take. Follow-up with your primary care provider in 1-2 weeks. Please call for appointment. Thank you for using [facility] for your health care needs. Patient Instructions: Antibiotic Form, Pain Management (DC) Stand Alone Forms: General Discharge Information Follow-up/Referrals: Kannan Arechiga MD [Primary Care Provider] - Call for Appointment Bull Pollack MD [Physician] - Other (Follow up as needed) Discharge Medications: New cefdinir 300 mg Capsule 300 mg PO Q12HR Qty: 9 0RF pantoprazole [Protonix] 40 mg tablet,delayed release (DR/EC) 40 mg PO Q12H Qty: 60 0RF Continued alum-mag hydroxide-simeth [Maalox Advanced] 200-200-20 mg/5 mL suspension 10 ml PO QID PRN (Reason: dyspepsia) Qty: 300 0RF Rx Instructions: administer between meals and at bedtime lidocaine HCl [Lidocaine Viscous] 2 % solution 1
== END 2024-01-04 17:53 | disposition home or self-care (01) ==
LOC: ANHED 06:42 → ANH3MEDSUR 07:25
PROVIDERS: Internal Medicine; Internal Medicine Gastroenterology; Admitting Provider Internal Medicine; Emergency Provider Emergency Medicine; PCP Emergency Medicine; Visit Provider Internal Medicine
PROC: 0DJ08ZZ Inspection of Upper Intestinal Tract, Via Natural or Artificial Opening Endoscopic (ICD-10-PCS; CPT 43235; principal; 2024-01-02 14:30)
DX: K20.80 Other esophagitis without bleeding (principal); T36.4X5A Adverse effect of tetracyclines, initial encounter; J03.90 Acute tonsillitis, unspecified; R11.2 Nausea with vomiting, unspecified; D72.829 Elevated white blood cell count, unspecified; L40.9 Psoriasis, unspecified; L70.9 Acne, unspecified; R07.89 Other chest pain; Z79.899 Other long term (current) drug therapy
CPT/HCPCS: 43239; 36415; 70491; 71260; 80053; 81001; 81025; 83735; 85025; 86308; 87086; 87651; 88305; 96361; 96365; 96375; 99285; A9270; G0378; J0696; J1100; J2003; J2405; J2470; J2704; J7030; J7120; Q9967

== ENCOUNTER 2025-01-14 09:27 | Emergency (ER) | payer OTHER, SELFPAY ==
[2025-01-14 09:42] VITALS: BP 115/78; PULSE 92; RESP 16; TEMP 36.1; O2SAT 98
--- NOTE | 2025-01-14 10:25 | ED.URI ---
HPI - URI/Sore Throat General Chief Complaint: Upper Respiratory Infection Stated Complaint: Cough Time Seen by Provider: 01/14/25 10:25 Source: patient, RN notes reviewed and old records reviewed Mode of arrival: ambulatory Limitations: no limitations History of Present Illness HPI Narrative: 24-year-old female presents to the [facility] with URI symptoms for over 1 week. Started on Monday with a sore throat, cough that started , has vomited at . Reports taking Mucinex, cough medication and DayQuil and NyQuil. Denies fevers, chest pain. Onset (ago): week(s) (1+) Related Data Home Medications ?Medication ?Instructions ?Recorded ?Confirmed ?Last Taken ?Type dextroamphetamine-amphetamine 7.5 01/14/25 Unknown History mg tablet escitalopram oxalate 20 mg tablet mg 01/14/25 Unknown History lamotrigine 25 mg tablet mg 01/14/25 Unknown History Allergies Allergy/AdvReac Type Severity Reaction Status Date / Time diazepam (From Valium) AdvReac Depression Verified 01/14/25 09:40 Review of Systems Review of Systems: All systems reviewed & are unremarkable except as noted in HPI and below Constitutional: Constitutional: Reports no additional constitutional complaints ENT: Reports system reviewed and no additional complaints, except as documented Cardiovascular: Cardiovascular: Reports no additional cardiovascular complaints, Denies chest pain and Denies dyspnea Respiratory: Respiratory: Reports as per HPI, Reports chest congestion, Reports cough and Denies dyspnea Musculoskeletal: Musculoskeletal: Reports no additional musculoskeletal complaints Integumentary/Breasts: Skin/Breast: Reports system reviewed and no additional complaints, except as docu [facility] Past Medical History Medical History Acne Leukocytosis Nausea and vomiting in adult Non-cardiac chest pain Odynophagia Psoriasis Family History Family History Grandparent Cerebrovascular accident Social History Social History Smoking status: Never smoker Substance use: never Do You Feel Safe in your Home?: Yes Lack of Transportation: No Lack of Food: Never True Current Housing: I Have Housing Concerned About Future Housing: No Difficulty Paying Gas/Electric Bills: No Difficulty Paying for Meds: No Currently Unemployed: No Education: High School Diploma/GED Difficulty w/ Childcare or Family Care: No Gender identity (if verbalized by the patient): Female Spiritual care concerns: No Comments At the time of my signature, I reviewed and agree with the nursing past medical, surgical, social, and family history. There is no relevant family history pertinent to the patient complaint. Exam Const: General: cooperative, healthy appearing, comfortable, no acute distress, well developed, alert and well nourished Nutritional Appearance: well nourished Orientation/consciousness: patient oriented x3 Limitations: no limitations HENMT: Head: normal to inspection Ears: hearing grossly normal bilaterally, external ears normal and TM abnormal bulging on the left, erythematous bilateral and with loss of landmarks on the left Face/Nose/Sinus: Normal external nose present, Normal nares present and Normal nasal mucous membranes and turbinates present Mouth: Yes Normal oral and palatal mucosa present, Yes lip normal, Yes tongue normal and Yes moist mucous membranes Throat: posterior oropharynx normal, uvula midline, postnasal drainage and no uvular edema Eyes: General: appearance normal, both eyes and all related structures Alignment and Position: alignment normal Neck: Neck: normal visual inspection, full ROM, no lymphadenopathy and no meningeal signs Chest: Chest palpation & inspection: normal inspection of the chest Resp: Effort & Inspection: normal respiratory effort and able to speak in complete sentences Auscultation: clear to auscultation bilaterally, no crackles, no rales, no rhonchi and no wheezes Cardio: Rate: regular rate Skin: General skin exam: normal color and no rashes or lesions noted Neuro: General: patient oriented x3, gait normal, moves all extremities and no meningeal signs Cognition (Neuro): normal cognition Speech: normal speech Gait exam (Neuro): Normal gait present Extrem: General: normal to inspection, full ROM, capillary refill normal and normal gait Psych: Appearance: grossly normal and well kempt Mental Status: mental status grossly normal Speech and movement: Normal speech and movement present and Clear speech present Affect: normal affect Attitude: cooperative Course Course Level of Care: Express Care Visit Vital Signs Vital signs: Vital Signs Oxygen Delivery Room Air 01/14/25 09:40 Temperature 96.9 F L 01/14/25 09:42 Pulse Rate 92 01/14/25 09:42 Respiratory Rate 16 01/14/25 09:42 Blood Pressure 115/78 01/14/25 09:42 Pulse Oximetry 98 01/14/25 09:42 Oxygen Delivery Room Air 01/14/25 09:40 Reviewed MDM - URI/Sore Throat MDM Narrative Medical decision making narrative: Patient sitting in exam room. Patient is nontoxic, vitals are stable. Patient presents with approximately 7-10 days of URI symptoms. Got worse over the weekend. Erythema noted to the bilateral TMs. Discussed treatment of postnasal drainage with [id number] products Patient appropriate for outpatient treatment with amoxicillin for 10 days for the otitis media and close follow-up Discharge instructions reviewed with patient, as well as provided in writing per nursing staff. The instructions also include specific and strict return/GO TO THE ER as well as f/u information. All questions have been answered, and the patient deny any further questions with discharge and discharge plan. Some parts of this dictation were generated by voice recognition software and may contain typographical and/or grammatical inaccuracies. Differential Diagnosis Differential diagnosis: Likely upper respiratory infection, otitis media, sinusitis, viral infection, bronchitis, influenza and pharyngitis Critical Care Time Critical Care Time Critical Care Time: No Discharge Plan Discharge Clinical Impression: Bilateral acute otitis media, PND (post-nasal drip) Patient Disposition: Home Condition: Stable Instructions: Antibiotic Form, Ear Infection (GEN), Postnasal Drip (DC) Additional Instructions: It is very important to treat your symptoms. Drink plenty of water, Gatorade, Pedialyte, ice pops or Jell-O. -Alternate Tylenol and Motrin per package directions for fever or pain. You can alternate every 4 hours -Antihistamine medication such as Zyrtec/Claritin/Veronika during the day can help improve symptoms. -doing daily nasal irrigations can help relieve pressure your sinuses. Things like a Neti pot -Use Flonase twice a day for 5 days then daily to help reduce the inflammation and dry up your sinuses. -You can also use Mucinex. Be sure to drink plenty of water with this medication at least 8 ounces with every dose and it is important to drink 8 to 10 glasses of water per day. Water is a natural decongestant -Eat and drink things that are easy to swallow, like tea or soup, or popsicles. -Oral rinses such as: Salt water gargles and/or may use topical anesthetic (eg. Chloraseptic spray) or lozenges to relieve dryness or throat pain). -Frequent hand washing or hand aircraft layout worker is one of the best ways to prevent spread of infection. -Using a vaporizer or humidifier at night will also help thin secretions and help with coughing up phlegm. -Follow up with primary care provider in 7-10 days if condition is not improving - For new or worsening symptoms go directly to the nearest ER Patient Language: Irish Prescriptions: New amoxicillin 875 mg tablet 875 mg PO Q12H Qty: 20 0RF No Action dextroamphetamine-amphetamine 7.5 mg tablet lamotrigine 25 mg tablet escitalopram oxalate 20 mg tablet Follow-up/Referrals: PHYSICIAN,ASSOCIATE EMBALMER/FUNERAL DIRECTOR [Primary Care Provider, Internal Medicine] Stand Alone Forms: Work/School Release IP
== END 2025-01-14 10:41 | disposition home or self-care (01) ==
PROVIDERS: Emergency Provider Nurse Practitioner
DX: H66.93 Otitis media, unspecified, bilateral (principal); R09.82 Postnasal drip; Z79.899 Other long term (current) drug therapy
CPT/HCPCS: 99213; G0463